=== PATIENT | female | born 1985 | race Caucasian/White ===

== ENCOUNTER → 2020-02-12 | Outpatient (CLI) | payer BC, SELFPAY ==
[2020-02-12 12:38] VITALS: BMI 22.7
== END | disposition home or self-care (01) ==
LOC: COVBMS 02-13 09:19 → LABSPEC 02-13 09:36
PROVIDERS: Referring Provider Physician Assistant; Visit Provider Physician Assistant
DX: Z03.818 Encounter for observation for suspected exposure to other biological agents ruled out (principal)
CPT/HCPCS: 87635; U0003